=== PATIENT | male | born 1980 | race African-American/Black ===

== ENCOUNTER 2017-07-26 19:25 | Inpatient (IN) | payer OTHER, MEDICAID ==
[~2017-07-26] VITALS: Ht 182.9 cm; Wt 107.0 kg
[~2017-07-26 19:25] MED LIST: LITH300C3 PO; RISP3 PO
[2017-07-26 21:26] LABS: BASOPHILS % (AUTO) 0.7 % (0.0-2.0); EOSINOPHILS % (AUTO) 0.7 % (1.0-6.0); HEMATOCRIT 45.4 % (41-53); HEMOGLOBIN 15.5 g/dL (13.5-17.5); LYMPHOCYTES # (AUTO) 1.5 K/uL (1.0-4.8); LYMPHOCYTES % (AUTO) 13.4 % (22.0-44.0); MEAN CORPUSCULAR HEMOGLOBIN 31.1 pg (26.0-34.0); MEAN CORPUSCULAR HGB CONC 34.3 G/dL (31.0-37.0); MEAN CORPUSCULAR VOLUME 91 fL (80-100); MONOCYTES % (AUTO) 8.7 % (2.0-9.0); NEUTROPHILS # (AUTO) 8.5 K/uL (1.8-7.7); NEUTROPHILS % (AUTO) 76.5 % (40.0-70.0); PLATELET COUNT (AUTO) 348 K/uL (150-450); RED CELL DISTRIBUTION WIDTH 13.8 % (11.5-14.5)
[2017-07-26] MEDS ORDERED: ZOLPIDEM TARTRATE 10 MG TABLET PO PRN (21:30)
[2017-07-26 21:34] LABS: AMPHET/METH SCREEN,URINE NEGATIVE (NEGATIVE); BARBITURATE SCREEN, URINE NEGATIVE (NEGATIVE); BENZODIAZEPINES SCREEN,URINE NEGATIVE (NEGATIVE); CANNABINOID SCREEN,URINE NEGATIVE (NEGATIVE); COCAINE SCREEN,URINE NEGATIVE (NEGATIVE); METHADONE SCREEN, URINE NEGATIVE (NEGATIVE); OPIATE SCREEN,URINE NEGATIVE (NEGATIVE)
[2017-07-26 21:37] LABS: ANION GAP 9 mmol/L (8-16); CALCIUM, TOTAL 9.1 mg/dL (8.8-10.5); CARBON DIOXIDE 29 mmol/L (22-29); CHLORIDE 100 mmol/L (98-107); GLOMERULAR FILTR. RATE CALC > 60 mL/min (>60); GLUCOSE,RANDOM 123 mg/dL (70-110); POTASSIUM 4.1 mmol/L (3.5-5.1); SODIUM SERUM 138 mmol/L (136-145); UREA NITROGEN, BLOOD 7 mg/dL (7-18)
[2017-07-26 21:38] LABS: PHENCYCLIDINE SCREEN,URINE NEGATIVE (NEGATIVE)
[2017-07-26 21:43] LABS: ALANINE AMINOTRANSFERASE 69 U/L (12-78); ALBUMIN 3.9 g/dL (3.4-5.0); ALKALINE PHOSPHATASE 63 U/L (46-116); ASPARTATE AMINOTRANSFERASE 26 U/L (15-37); BILIRUBIN,TOTAL 0.4 mg/dL (0.1-1.0); TOTAL PROTEIN, SERUM 7.6 g/dL (6.4-8.2)
[2017-07-26 22:04] LABS: LITHIUM < 0.20 mmol/L (0.60-1.20)
[2017-07-26] MEDS ORDERED: LORazepam 2 MG/ML VIAL IM ONE (22:15)
[2017-07-26] MEDS ORDERED: HALOPERIDOL LACTATE 5 MG/ML VIAL IM ONE (22:15)
[2017-07-26] MEDS ORDERED: DiphenhydrAMINE HCL 50 MG/ML VIAL IM ONE (22:15)
[2017-07-27 00:02] VITALS: BP 132/81
[2017-07-27] MEDS ORDERED: INFLUENZA VIRUS VACCINE QVS 2017-18 (3YR+)/PF 60 MCG/0.5 ML SYRINGE IM ONE (01:15)
[2017-07-27 08:24] VITALS: BP 119/74
[2017-07-27] MEDS: LORazepam 2 MG TABLET PO PRN ×2 (08:43→16:54)
[2017-07-27] MEDS: HALOPERIDOL 5 MG TABLET PO PRN ×2 (08:43→16:54)
[2017-07-27 16:00] VITALS: BP 127/86
[2017-07-27] MEDS ORDERED: IBUPROFEN 400 MG TABLET PO PRN (17:00)
[2017-07-27] MEDS ORDERED: ACETAMINOPHEN 325 MG TABLET PO PRN (17:00)
[2017-07-28 01:56] VITALS: BP 123/85
[2017-07-28 07:44] LABS: BASOPHILS # (AUTO) 0.02 K/uL (0.00-0.20); BASOPHILS % (AUTO) 0.3 % (0.0-2.0); EOSINOPHILS # (AUTO) 0.12 K/uL (0.00-0.70); EOSINOPHILS % (AUTO) 1.44 % (1.0-6.0); HEMATOCRIT 46.2 % (41-53); HEMOGLOBIN 15.2 g/dL (13.5-17.5); LYMPHOCYTES # (AUTO) 1.5 K/uL (1.0-4.8); LYMPHOCYTES % (AUTO) 18.4 % (22.0-44.0); MEAN CORPUSCULAR HEMOGLOBIN 30.7 pg (26.0-34.0); MEAN CORPUSCULAR VOLUME 93 fL (80-100); MONOCYTES # (AUTO) 0.8 K/uL (0.1-1.0); MONOCYTES % (AUTO) 9.7 % (2.0-9.0); NEUTROPHILS # (AUTO) 5.8 K/uL (1.8-7.7); NEUTROPHILS % (AUTO) 70.2 % (40.0-70.0); PLATELET COUNT (AUTO) 330 K/uL (150-450); RED BLOOD CELL COUNT(AUTO) 4.97 MIL/uL (4.50-5.90); RED CELL DISTRIBUTION WIDTH 13.5 % (11.5-14.5)
[2017-07-28 08:16] LABS: HEMOGLOBIN A1C 6.1 % (4.5-6.2)
[2017-07-28 08:20] VITALS: BP 119/83
[2017-07-28 08:34] LABS: CHOL/HDL RATIO 5.1 (4.2-7.3); THYROID STIMULATING HORMONE 1.91 uIU/mL (0.36-3.74)
[2017-07-28] MEDS: RisperiDONE 3 MG TABLET PO SCH ×2 (09:47→16:35)
[2017-07-28] MEDS: LITHIUM CARBONATE 300 MG CAPSULE PO SCH ×2 (09:47→16:35)
[2017-07-28] MEDS: LORazepam 2 MG TABLET PO PRN (16:36)
[2017-07-28] MEDS: HALOPERIDOL 5 MG TABLET PO PRN (16:36)
[2017-07-29 05:41] VITALS: BP 122/78
[2017-07-29 08:00] VITALS: BP 141/86
[2017-07-29] MEDS: LITHIUM CARBONATE 300 MG CAPSULE PO SCH ×2 (08:50→16:30)
[2017-07-29] MEDS: RisperiDONE 3 MG TABLET PO SCH ×2 (08:50→16:30)
[2017-07-29] MEDS: LORazepam 2 MG TABLET PO PRN (16:30)
[2017-07-29] MEDS: HALOPERIDOL 5 MG TABLET PO PRN (16:30)
[2017-07-29 16:33] VITALS: BP 130/85
[2017-07-30 05:57] VITALS: BP 129/82
[2017-07-30 08:05] VITALS: BP 136/73
[2017-07-30 08:16] LABS: BASOPHILS # (AUTO) 0.03 K/uL (0.00-0.20); BASOPHILS % (AUTO) 0.3 % (0.0-2.0); EOSINOPHILS # (AUTO) 0.12 K/uL (0.00-0.70); EOSINOPHILS % (AUTO) 1.23 % (1.0-6.0); HEMATOCRIT 45.8 % (41-53); HEMOGLOBIN 15.2 g/dL (13.5-17.5); LYMPHOCYTES # (AUTO) 2.1 K/uL (1.0-4.8); LYMPHOCYTES % (AUTO) 22.5 % (22.0-44.0); MEAN CORPUSCULAR HEMOGLOBIN 30.7 pg (26.0-34.0); MEAN CORPUSCULAR HGB CONC 33.1 G/dL (31.0-37.0); MEAN CORPUSCULAR VOLUME 93 fL (80-100); MONOCYTES % (AUTO) 10.2 % (2.0-9.0); NEUTROPHILS # (AUTO) 6.2 K/uL (1.8-7.7); NEUTROPHILS % (AUTO) 65.7 % (40.0-70.0); PLATELET COUNT (AUTO) 355 K/uL (150-450); RED BLOOD CELL COUNT(AUTO) 4.93 MIL/uL (4.50-5.90); RED CELL DISTRIBUTION WIDTH 13.4 % (11.5-14.5)
[2017-07-30] MEDS: RisperiDONE 3 MG TABLET PO SCH (08:35)
[2017-07-30] MEDS: LITHIUM CARBONATE 300 MG CAPSULE PO SCH (08:35)
[2017-07-30 08:37] LABS: ANION GAP 9 mmol/L (8-16); CARBON DIOXIDE 26 mmol/L (22-29); CHLORIDE 103 mmol/L (98-107); CREATININE 1.16 mg/dL (0.60-1.30); GLUCOSE,RANDOM 92 mg/dL (70-110); POTASSIUM 4.2 mmol/L (3.5-5.1); SODIUM SERUM 138 mmol/L (136-145); UREA NITROGEN, BLOOD 9 mg/dL (7-18)
[2017-07-30 08:38] LABS: ALANINE AMINOTRANSFERASE 73 U/L (12-78); ALBUMIN 3.8 g/dL (3.4-5.0); ALKALINE PHOSPHATASE 59 U/L (46-116); ASPARTATE AMINOTRANSFERASE 43 U/L (15-37); BILIRUBIN,TOTAL 0.2 mg/dL (0.1-1.0); CALCIUM, TOTAL 8.8 mg/dL (8.8-10.5); GLOMERULAR FILTR. RATE CALC > 60 mL/min (>60); THYROID STIMULATING HORMONE 3.78 uIU/mL (0.36-3.74); TOTAL PROTEIN, SERUM 7.4 g/dL (6.4-8.2)
[2017-07-30 08:44] LABS: APPEARANCE,URINE CLEAR (CLEAR); BILIRUBIN,URINE NEGATIVE (NEGATIVE); GLUCOSE, URINE (UA) NEGATIVE (NEGATIVE); KETONES,URINE NEGATIVE (NEGATIVE); LEUKOCYTE ESTERASE ,URINE NEGATIVE (NEGATIVE); NITRATE,URINE NEGATIVE (NEGATIVE); OCCULT BLOOD,URINE NEGATIVE (NEGATIVE); PH,URINE 7.5 (5.0-8.0); PROTEIN,URINE NEGATIVE (NEGATIVE); UROBILINOGEN,URINE 0.2 mg/dL (<=1.0)
== END 2017-07-30 16:15 | disposition home or self-care (01) | DRG 885 ==
LOC: EMS 19:29 → B3A 22:38
PROVIDERS: ADMIT Psychiatry & Neurology Psychiatry; ATTEND Psychiatry & Neurology Psychiatry
PROC: 3E0234Z Introduction of Serum, Toxoid and Vaccine into Muscle, Percutaneous Approach (ICD-10-PCS; principal; 2017-07-27)
DX: F20.9 Schizophrenia, unspecified (principal); Z59.0 Homelessness; D72.829 Elevated white blood cell count, unspecified; F12.90 Cannabis use, unspecified, uncomplicated; F15.10 Other stimulant abuse, uncomplicated; F31.9 Bipolar disorder, unspecified; F41.9 Anxiety disorder, unspecified; I10 Essential (primary) hypertension; R73.9 Hyperglycemia, unspecified; Z81.8 Family history of other mental and behavioral disorders; Z23 Encounter for immunization
CPT/HCPCS: 83036; 84443; 87081; 90471; 96372; 99285; G0480; J1200; J1630; J2060